=== PATIENT | female | born 1940 | race Caucasian/White ===

== ENCOUNTER 2020-08-18 13:37 | Outpatient (CLI) | payer OTHER, SELFPAY ==
--- NOTE | ~2020-08-18 | US_ITS ---
EXAMINATION: US carotid duplex BI DATE: 08/18/2020 14:35 INDICATION: Dizziness. TECHNIQUE: Grayscale, color Doppler, and pulsed Doppler images of the cervical carotid arteries were obtained. The degree of vessel stenosis is placed in one of the following categories: normal, <50%, 5 0-69%, >=70% but less than near-occlusion, near-occlusion, or total occlusion. Note that percent sten osis relative to normal distal artery lumen diameter is indirectly measured from velocity measurement s as described by Enoch, et al. Radiology 2003; [id number]:[id number]. COMPARISON: None. FINDINGS: RIGHT: The right common carotid artery (CCA) peak systolic velocity (PSV) is 90 cm/s. The right internal car otid artery (ICA) PSV is 95 cm/s. The right ICA end-diastolic velocity (EDV) is 25 cm/s. The right IC A/CCA PSV ratio is 1.1. Grayscale and color Doppler images yield an estimate of <50% diameter reducti on from plaque in the ICA. There is antegrade flow in the right vertebral artery. LEFT: The left CCA PSV is 94 cm/s. The left ICA PSV is 129 cm/s. The left ICA EDV is 39 cm/s. The left ICA/ CCA PSV ratio is 1.4. Grayscale and color Doppler images yield an estimate of >=50% diameter reductio n from plaque in the ICA. There is antegrade flow in the left vertebral artery. IMPRESSION: 1. <50% stenosis in the right internal carotid artery. 2. 50-69% stenosis in the left internal carotid artery. Reviewed, dictated and finalized at location A. 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
== END 2020-08-18 13:38 | disposition home or self-care (01) ==
PROVIDERS: PCP Internal Medicine; Visit Provider Internal Medicine
DX: R42 Dizziness and giddiness (principal); I65.23 Occlusion and stenosis of bilateral carotid arteries
CPT/HCPCS: 93880

== ENCOUNTER 2020-11-28 08:00 | Outpatient (RCR) | payer OTHER, SELFPAY ==
--- NOTE | 2020-11-03 16:15 | PTOPEVAL ---
PHYSICAL THERAPY EVALUATION AND PLAN OF CARE 11-03-20 Thank you for referring Pepper Wilde to [facility], for the diagnosis of vertigo, BPPV, vestibular rehab.? Pepper is scheduled to be seen for therapy? 1-2 x/week for 5 weeks. Please review, sign, date and return this plan of care VALENTINA. I agree with and certify that the following plan of care is medically necessary. Referring Physician Date Referring Provider: Pablito Mayen MD *PT Outpatient Evaluation Document 11/03/20 15:10 YASHIRA (Rec: 11/03/20 16:15 YASHIRA [id number]) Outpatient Past Medical History Past Medical History Source of Past Medical History Patient Neurological History Hx Neurological Disorders No Significant History Cardiovascular History Hx Cardiac Surgery Yes: cardiac stents ~ 8 yr ago Hx Hypertension Yes: meds Respiratory History Hx Respiratory Disorders No Significant History Gastrointestinal History Hx Gastroesophageal Reflux Disease Yes: meds Hx Irritable Bowel Yes: stress related Genitourinary History Hx Genitourinary Disorders No Significant History Musculoskeletal History Hx Arthritis Yes: hips and hands Hx Degenerative Disk Disease Yes: neck pain Endocrine History Hx Diabetes Yes: borderline- diet control HEENT History Hx Cataracts Yes: B cataract removed Hx Other HEENT Disorders Yes: have astigmatism;last to eye dr 1 month ago Integumentary History Hx Skin Disorders No Significant History Reproductive History Hx Reproductive Disorders No Significant History Evaluation Information Problem Diagnosis benign positional vertigo Onset Jul 2020 Prior Level of Function Activity Level (Last 3 Months) 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 Home PRN for pain; Meds Must Be Re-entered With Each Visit. Home Setting Home Type House Living Situation A
--- NOTE | 2020-11-08 14:26 | PCPTNOTE ---
Patient called & cancelled scheduled appointment this date due to having water in the basement.
--- NOTE | 2021-01-03 15:15 | PCPTNOTE ---
PHYSICAL THERAPY DISCHARGE 01-03-21 Attending Provider: Pablito Mayen MD Patient:Pepper Wilde Date of :1940 Mrs. Wilde has not returned for any further treatments since 11/28/2020, therefore she will be discharged at this time. She received 3 treatments for the diagnosis of BPPV/vestibular rehab from November 03 to November 28. She called and canceled one appointment. The goals were not addressed. Thank you for referring Pepper to [facility]. Please review, sign, date and return this discharge summary VALENTINA. I have been updated about the patient's current status and I agree with discharge from the above service at this time. Referring Physician Date
== END 2021-01-05 08:17 | disposition home or self-care (01) ==
LOC: ANHPT 08:00
PROVIDERS: PCP Internal Medicine; Referring Provider Otolaryngology; Visit Provider Otolaryngology
DX: H81.13 Benign paroxysmal vertigo, bilateral (principal)
CPT/HCPCS: 97110; 97161

== ENCOUNTER 2021-04-03 09:29 | Outpatient (CLI) | payer OTHER, SELFPAY ==
[2021-04-03 10:27] LABS: Alanine Aminotransferase 30 U/L (4-35); Aspartate Amino Transferase 54 U/L (14-36)
[2021-04-03 10:38] LABS: LDL Cholesterol Direct 107 mg/dL
[2021-04-03 11:22] LABS: Hepatitis C Virus Antibody Negative (Negative)
== END 2021-04-03 09:30 | disposition home or self-care (01) ==
PROVIDERS: PCP Internal Medicine; Visit Provider Internal Medicine
DX: R74.8 Abnormal levels of other serum enzymes (principal)
CPT/HCPCS: 36415; 83721; 84450; 84460; 86803

== ENCOUNTER 2021-10-23 09:33 | Outpatient (CLI) | payer OTHER, SELFPAY ==
--- NOTE | ~2021-10-23 | XR_ITS ---
EXAMINATION: XR shoulder LT min 2V DATE: 10/23/2021 09:48 INDICATION: Chronic left shoulder pain. TECHNIQUE: 4 views of left shoulder were obtained. COMPARISON: Left shoulder radiographs 09/19/2016 FINDINGS: Bone alignment is normal. No fracture. There is mild osteoarthritis of glenohumeral joint a nd moderate osteoarthritis of acromioclavicular joint. IMPRESSION: 1. Polyarticular osteoarthritis. Reviewed, dictated and finalized at location A.
[2021-10-23 10:09] LABS: Basophils Absolute Auto 0.1 K/mm3 (0.0-0.1); Basophils Percent Auto 0.7 % (0.2-1.2); Eosinophils Absolute Auto 0.1 K/mm3 (0-0.3); Eosinophils Percent Auto 1.5 % (0-4.4); Hematocrit 40.9 % (37.0-47.0); Hemoglobin 13.6 g/dL (12.0-15.0); Immature Granulocyte Absolute 0.02 K/mm3 (0.00-0.031); Immature Granulocyte Percent A 0.2 % (0-0.5); Lymphocytes Percent Auto 19.7 % (18.3-44.2); Mean Corpuscular HGB Conc 33.3 g/dl (32-36); Mean Corpuscular Hemoglobin 30.6 pg (26-34); Mean Corpuscular Volume 91.9 fl (80-100); Mean Platelet Volume 9.2 fl (7.4-10.4); Monocytes Absolute Auto 0.6 K/mm3 (0.1-0.6); Monocytes Percent Auto 7.3 % (2.6-8.5); Neutrophils Absolute Auto 6.1 K/mm3 (1.3-6.7); Neutrophils Percent Auto 70.6 % (45.5-73.1); Platelet Count Result 242 k/mm3 (150-375); Red Blood Count 4.45 M/mm3 (4.2-5.4); Red Cell Distribution Width 12.6 % (11.5-14.5); White Blood Count 8.7 K/mm3 (4.5-10.0)
[2021-10-23 10:22] LABS: Alanine Aminotransferase 22 U/L (4-35); Albumin Level 4.3 g/dL (3.5-5.1); Alkaline Phosphatase 88 U/L (38-126); Anion Gap 7 mmol/L (8-16); Aspartate Amino Transferase 31 U/L (14-36); Bilirubin,Total 1.5 mg/dL (0.2-1.3); Blood Urea Nitrogen 15 mg/dL (7-17); Calcium 8.9 mg/dL (8.4-10.2); Carbon Dioxide 24 mmol/L (22-30); Chloride 108 mmol/L (98-107); Cholesterol 213 mg/dL (0-200); Estimated Glomerular Filt Rate > 60; Glucose 114 mg/dL (65-110); HDL Direct 54 mg/dL; Potassium 3.9 mmol/L (3.4-5.0); Sodium 139 mmol/L (137-145); Triglycerides 138 mg/dL (<150)
[2021-10-23 10:27] LABS: Hemoglobin A1C 5.8 % (<5.7)
[2021-10-23 10:33] LABS: LDL Cholesterol Direct 105 mg/dL
== END 2021-10-23 09:34 | disposition home or self-care (01) ==
PROVIDERS: PCP Internal Medicine; Visit Provider Family Medicine
DX: M19.012 Primary osteoarthritis, left shoulder (principal)
CPT/HCPCS: 36415; 73030; 80053; 80061; 83036; 85025

== ENCOUNTER 2022-01-23 16:00 | Outpatient (CLI) | payer OTHER, SELFPAY ==
--- NOTE | ~2022-01-23 | XR_ITS ---
XR ankle RT min 3V 01/23/2022 16:23 Indication: Acute right ankle pain Procedure: 4 views right ankle Comparison: 12/01/2017 Findings: Ankle mortise intact. Talar dome is normal. There is mild lateral soft tissue swelling. Mil d degenerative changes of the talonavicular joint. No fracture or traumatic malalignment. No foreign bodies. Impression: 1: No acute bone or joint abnormality. Reviewed, dictated and finalized at location A. Impression: 1: No acute bone or joint abnormality.
== END 2022-01-23 16:01 | disposition home or self-care (01) ==
PROVIDERS: PCP Internal Medicine; Visit Provider Family Medicine
DX: M25.471 Effusion, right ankle (principal); M79.89 Other specified soft tissue disorders; M19.071 Primary osteoarthritis, right ankle and foot
CPT/HCPCS: 73610

== ENCOUNTER 2022-03-15 13:46 | Outpatient (CLI) | payer OTHER, SELFPAY ==
--- NOTE | ~2022-03-15 | XR_ITS ---
XR shoulder LT min 2V DATE: 03/15/2022 14:08 INDICATION: Chronic left shoulder pain TECHNIQUE: 4 views COMPARISON: 10/23/2021 left shoulder FINDINGS: No fracture or dislocation, periosteal reaction or bone destruction. No abnormal soft tiss ue calcification. IMPRESSION: Negative Reviewed, dictated and finalized at location B. IMPRESSION: Negative
== END 2022-03-15 13:47 | disposition home or self-care (01) ==
PROVIDERS: PCP Family Medicine; Visit Provider Family Medicine
DX: M25.512 Pain in left shoulder (principal); G89.29 Other chronic pain
CPT/HCPCS: 73030

== ENCOUNTER 2022-05-13 13:03 | Inpatient (IN) | payer OTHER, SELFPAY ==
--- NOTE | ~2022-05-13 | XR_ITS ---
EXAM: XR pelvis 1-2V DATE: 05/13/2022 17:17 HISTORY: fall TODAY, PAIN WITH MOVEMENT, LOWER BACK PAIN . COMPARISON: 07/25/2012. FINDINGS: Exam limited by exclusion of a portion of the right greater trochanter from the field-of-v iew. Decreased mineralization. No fracture or dislocation. No lytic or blastic lesion. Degenerative c hanges in the lumbar spine, left SI joint, and bilateral hips. Scattered pelvic enthesopathy. No eros ion or periosteal change. Vascular calcifications. IMPRESSION: Limited exam as detailed above. No definite acute osseous finding in the pelvis. Reviewed, dictated and finalized at location K. IMPRESSION: Limited exam as detailed above. No definite acute osseous finding i n the pelvis.
--- NOTE | ~2022-05-13 | US_ITS ---
EXAMINATION: US right upper quadrant DATE: 05/15/2022 07:28 INDICATION: Abnormal liver function tests. TECHNIQUE: Multiple grayscale and Doppler ultrasound images of the abdomen were obtained. COMPARISON: CT abdomen and pelvis 08/17/2008 FINDINGS: The visualized portions of the head, body, and tail of the pancreas are normal. There is di ffuse hepatic steatosis. No liver surface nodularity. The gallbladder is absent. The common duct is n ormal and measures 7 mm. IMPRESSION: 1. Diffuse hepatic steatosis. Reviewed, dictated and finalized at location A.
--- NOTE | ~2022-05-13 | CT_ITS ---
EXAMINATION: CT brain wo con DATE: 05/13/2022 13:45 INDICATION: Head injury. TECHNIQUE: Computed tomography (CT) of the head was performed without intravenous contrast. The mA wa s adjusted according to patient size. Iterative reconstruction technique was employed. The dose-lengt h product was 605.33 mGy-cm. COMPARISON: Head CT 09/04/2012 FINDINGS: There are scattered areas of low attenuation in the cerebral white matter, which is within normal limits for the patient's age. There is a small area of cystic encephalomalacia in the deep rig ht frontoparietal white matter. There is no intracranial hemorrhage, acute infarction, or abnormal in tracranial mass lesion. The ventricles are normal in size. There are likely changes of ocular lens re placement surgeries. There is a right posterior scalp hematoma. There is mild mucosal thickening in t he paranasal sinuses. The mastoid air cells are normal. IMPRESSION: 1. Small area of chronic cystic encephalomalacia in the deep right frontoparietal white matter. Reviewed, dictated and finalized at location A. IMPRESSION: 1. Small area of chronic cystic encephalomalacia in the deep right frontopariet al white matter.
--- NOTE | ~2022-05-13 | CT_ITS ---
EXAMINATION: CT pelvis wo con DATE: 05/14/2022 13:30 INDICATION: Left buttock pain. Fall. TECHNIQUE: Computed tomography (CT) of the pelvis was performed without intravenous contrast. Automat ed exposure control and iterative reconstruction technique were employed. The dose-length product was 272.68 mGy-cm. COMPARISON: CT abdomen and pelvis 08/17/2008 FINDINGS: There is an infraumbilical ventral hernia containing fat. The bladder is distended. There i s a 5.1 x 5.3 cm mass in the right adnexa. There are no pathologically enlarged lymph nodes. There is no free intraperitoneal fluid. There are chronic bilateral L5 pars defects. There is 11 mm anterolis thesis of L5 on S1. There is severe lumbar spondylosis. There is moderate osteoarthritis of the hips. IMPRESSION: 1. 5.3 cm mass in the right adnexa suspicious for neoplasm. Pelvis ultrasound is recommended. Reviewed, dictated and finalized at location A. IMPRESSION: 1. 5.3 cm mass in the right adnexa suspicious for neoplasm. Pelvis ultrasound i s recommended.
--- NOTE | ~2022-05-13 | MR_ITS ---
EXAMINATION: MR brain/brain stem wo/w con DATE: 05/14/2022 13:03 INDICATION: Vertigo. TECHNIQUE: Magnetic resonance imaging (MRI) of the brain and brainstem was performed without and with 13 mL MultiHance intravenous contrast. COMPARISON: Head CT 05/13/2022 FINDINGS: There are scattered areas of nonspecific increased T2-weighted signal intensity in the cere bral white matter, which is within normal limits for the patient's age. 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 There is a small old infar ct in left frontal lobe. There is no intracranial hemorrhage, acute infarction, or abnormal intracran ial mass lesion. The ventricles are normal in size. There is mild mucosal thickening in the ethmoid s inuses. There are likely changes of ocular lens replacement surgeries. The mastoid air cells are norm al. IMPRESSION: 1. 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 Reviewed, dictated and finalized at location A.
--- NOTE | ~2022-05-13 | US_ITS ---
EXAMINATION: US carotid duplex BI DATE: 05/14/2022 10:55 INDICATION: Carotid bruit. TECHNIQUE: Grayscale, color Doppler, and pulsed Doppler images of the cervical carotid arteries were obtained. The degree of vessel stenosis is placed in one of the following categories: normal, <50%, 5 0-69%, >=70% but less than near-occlusion, near-occlusion, or total occlusion. Note that percent sten osis relative to normal distal artery lumen diameter is indirectly measured from velocity measurement s as described by Enoch, et al. Radiology 2003; [id number]. COMPARISON: Ultrasound 08/18/2020 FINDINGS: RIGHT: The right common carotid artery (CCA) peak systolic velocity (PSV) is 84 cm/s. The right internal car otid artery (ICA) PSV is 109 cm/s. The right ICA end-diastolic velocity (EDV) is 22 cm/s. The right I CA/CCA PSV ratio is 1.3. Grayscale and color Doppler images yield an estimate of <50% diameter reduct ion from plaque in the ICA. There is antegrade flow in the right vertebral artery. LEFT: The left CCA PSV is 99 cm/s. The left ICA PSV is 150 cm/s. The left ICA EDV is 29 cm/s. The left ICA/ CCA PSV ratio is 1.8. Grayscale and color Doppler images yield an estimate of >=50% diameter reductio n from plaque in the ICA. There is antegrade flow in the left vertebral artery. IMPRESSION: 1. <50% stenosis in the right internal carotid artery. 2. 50-69% stenosis in the left internal carotid artery. Reviewed, dictated and finalized at location A.
--- NOTE | ~2022-05-13 | CT_ITS ---
EXAMINATION: CT brain wo con DATE: 05/16/2022 09:04 INDICATION: Confusion TECHNIQUE: Computed tomography (CT) of the head was performed without intravenous contrast. The mA wa s adjusted according to patient size. Iterative reconstruction technique was employed. Exam dose: 60 5.33 mGy-cm total exam DLP. COMPARISON: 05/14/2022 MR brain 05/13/2022 CT brain 09/04/2012 CT brain FINDINGS: There is right vertebral, basilar and bilateral carotid siphon internal carotid artery calc ification. Small focal chronic infarct in the right frontoparietal white matter. No intracranial mass lesion or hemorrhage or cerebrovascular accident is noted otherwise. Prominent right high posterior parietal cephalohematoma, without underlying skull fracture or intracr anial coup or contrecoup injury. No subdural or epidural hematoma. No cerebral contusion is detected. The cranial vault is intact. The mastoid air cells and included paranasal sinuses are normally develo ped and aerated. IMPRESSION: High right posterior parietal cephalohematoma; no skull fracture or acute intracranial f inding Chronic small focal white matter infarct, right frontoparietal area Cerebral atherosclerosis No acute intracranial finding Reviewed, dictated and finalized at Location A. Reviewed, dictated and finalized at location A. IMPRESSION: High right posterior parietal cephalohematoma; no skull fracture o r acute intracranial finding Chronic small focal white matter infarct, right frontoparietal area Cerebral atherosclerosis No acute intracranial finding
--- NOTE | ~2022-05-13 | US_ITS ---
EXAMINATION: US pelvic complete DATE: 05/15/2022 14:22 INDICATION: Adnexal mass. TECHNIQUE: Multiple transabdominal sonographic images of the pelvis were obtained. COMPARISON: Pelvis CT 05/14/2022 FINDINGS: The uterus is absent. There is no free fluid in the pelvis. There is a 6.8 x 4.4 x 5.5 cm cystic mass with septations and low level echoes in right adnexa. There is vascular flow in the mass. Left ovary is not visualized. IMPRESSION: 1. 6.8 cm cystic mass in right adnexa suspicious for neoplasm. Consider surgical evaluation. Reviewed, dictated and finalized at location A. IMPRESSION: 1. 6.8 cm cystic mass in right adnexa suspicious for neoplasm. Consider surgica l evaluation.
[2022-05-13 13:07] VITALS: BP 190/82; PULSE 95; RESP 18; TEMP 37; O2SAT 98
[2022-05-13] MEDS: MECLIZINE HCL 25 MG TABLET PO ×2 (13:27→17:25)
--- NOTE | 2022-05-13 13:44 | ED.FALL ---
HPI - Fall General Chief Complaint: Fall Stated Complaint: mechanical GLF History of Present Illness HPI Narrative: Pt says she sometimes has vertigo when she changes position quickly. Today she was in parking lot and felt dizzy and lost her balance and fell on the concrete striking her head. Pt denies LOC or neck pain. Pt denies any other injury. Related Data Home Medications Medication Instructions Recorded Confirmed acetaminophen 500 mg tablet 500 mg PO Q6H PRN 06/12/20 (Tylenol Extra Strength) amlodipine 5 mg tablet 5 mg PO DAILY 06/12/20 atorvastatin 80 mg tablet 80 mg PO DAILY 06/12/20 benzonatate 100 mg capsule 100 mg PO BID PRN 06/12/20 carboxymethylcellulose 0.5 1 drp ophthalmic (eye) QID 06/12/20 %-glycerin 0.9 % eye drops (Refresh Optive) fexofenadine 180 mg tablet 180 mg PO DAILY 06/12/20 (Jerri Allergy) lisinopril 5 mg tablet 5 mg PO DAILY 06/12/20 loperamide 2 mg capsule 2 mg PO Q6H PRN 06/12/20 (Anti-Diarrheal (loperamide)) Allergies Allergy/AdvReac Type Severity Reaction Status Date / Time carisoprodol AdvReac Mild DIZZY Verified 05/13/22 13:26 pentazocine AdvReac Mild DIZZY Verified 05/13/22 13:26 propoxyphene AdvReac Mild DIZZY Verified 05/13/22 13:26 Review of Systems Review of Systems: All systems reviewed & are unremarkable except as noted in HPI and below PMFSH Family History Family History (Updated 02/09/16 @ 23:21 by DOCTOR UNKNOWN) Mother Family history of malignant neoplasm Family history of lung cancer Sibling Patient's brother is in good health Father Family history of malignant neoplasm Other Diabetes mellitus Family history of diabetes mellitus in first degree relative Family history of malignant neoplasm of breast Family history of malignant neoplasm of breast in first degree relative Social History Social History Smoking status: Never smoker Alcohol intake: never Exam Const: General: healthy appearing Nutritional Appearance: well nourished Orientation/consciousness: patient oriented x3 Limitations: no limitations HENMT: Head: hematoma (occiput) Eyes: Conjunctivae: conjunctivae normal EOM: EOMs intact bilaterally Neck: Neck: normal visual inspection, no lymphadenopathy and no meningeal signs Chest: Chest palpation & inspection: normal inspection of the chest Resp: Effort & Inspection: normal respiratory effort Auscultation: clear to auscultation bilaterally Cardio: Rate: regular rate Rhythm: regular rhythm GI: Auscultation: normal bowel sounds Skin: General skin exam: normal color Rashes: no rashes Wounds: no wounds Neuro: General: patient oriented x3, moves all extremities, no meningeal signs, no focal motor deficits and CN's II-XI intact bilaterally Cranial nerves: Yes Nystagmus not present Speech: normal speech Extrem: General: normal to inspection and no clubbing, cyanosis or edema Psych: Mental Status: mental status grossly normal Affect: normal affect Attitude: cooperative Course Course Emergency Course: attempted to walk patient after medicating two times and patient unable to walk more than a couple of steps without becoming extremely dizzy and unsteady and nearly falling with me holding onto her. Pt agrees to overnight admission. discussed with isiah Hammer agrees with admit. Vital Signs Vital signs: Vital Signs Temperature 98.6 F 05/13/22 13:07 Pulse Rate 95 05/13/22 13:07 Respiratory Rate 18 05/13/22 13:07 Blood Pressure 190/82 H 05/13/22 13:07 Pulse Oximetry 98 05/13/22 13:07 Oxygen Delivery Room Air 05/13/22 13:07 Temperature 98.6 F 05/13/22 13:07 Pulse Rate 95 05/13/22 13:07 Respiratory Rate 18 05/13/22 13:07 Blood Pressure 190/82 H 05/13/22 13:07 Pulse Oximetry 98 05/13/22 13:07 Oxygen Delivery Room Air 05/13/22 13:07 Discharge Plan Discharge Clinical Impression: Benign positional vertigo, Contusion Patient Disposition: Still
[2022-05-13] MEDS: ONDANSETRON HCL ODT 4 MG TABLET PO (15:56)
--- NOTE | 2022-05-13 17:48 | PM.IMHP ---
H&P: HPI History of Present Illness Date/Time: 05/13/22 18:00 Chief Complaint: Fall. Narrative: This is a very pleasant 81-year-old female with history of vertigo, coronary artery disease with history of stent, hypertension, GERD, and borderline diabetes who presented to the ED via EMS from the parking lot of a local establishment for evaluation after a fall. She felt okay when she got up this morning and went to the [employer] store to go shopping. When she was stepping up occurred to enter the store she lost her balance and fell straight back onto the pavement, striking the back of her head. She did not lose consciousness and she luckily did not sustain any significant injuries aside from a large posterior scalp hematoma. She does however mention some mild pain over her tailbone. Passersby tried to help her up however at that time she was feeling quite dizzy, more vertiginous, and EMS was summoned. Vertigo is not new to her and she has prescriptions for meclizine at home. She has even done physical therapy which seemed to help though she has had increasing issues with vertigo more recently. Brain CT done on arrival to the emergency department did not show any acute findings. Her vital signs have been stable. She was treated with meclizine and Zofran though she continues to have symptoms and she is being admitted in this setting for supportive care. It does not sound as though she had a prodrome prior to this episode however she tells me that she assumes that she had vertigo which cause the fall. She specifically denies feeling lightheaded, dizzy, woozy, etcetera prior to the fall. She also denies acute auditory and visual changes, focal weakness, paresthesias, facial droop, dysarthria, and dysphagia. It is not unusual for her to have sinus issues and earaches and that is unchanged. She has not had chest pain, pleuritic pain, palpitations, or shortness of breath. Of note the patient had a fall last week at home and sustained a contusion to the right side of the nose. Review of Systems Review of Systems: Twelve systems were reviewed and are negative except for as per HPI. [facility] Past Medical History Medical History (Updated 05/13/22 @ 23:06 by Kandace Pang PA-C) Coronary artery disease Degenerative disc disease Hyperlipidemia Hypertension Vertigo Surgical History Surgical History (Updated 05/13/22 @ 22:43 by Kandace Pang PA-C) History of bilateral cataract extraction History of cardiac catheterization History of heart artery stent Family History Family History Mother Family history of malignant neoplasm Family history of lung cancer Sibling Patient's brother is in good health Father Family history of malignant neoplasm Other Diabetes mellitus Family history of diabetes mellitus in first degree relative Family history of malignant neoplasm of breast Family history of malignant neoplasm of breast in first degree relative Social History Social History (Updated 05/13/22 @ 22:45 by Kandace Pang PA-C) Social History: Surrogate medical decision maker: Liliya Xiao or Nahun Hoffman, darshan. Code status: full code. Smoking status: Never smoker Alcohol intake: never Has the Lack of Transportation Kept You From Medical Appointments or From Getting Medications?: No Within the Past 12 Months, Were You Worried Whether Your Food Would Run Out Before You Got Money to Buy More?: Never True What is Your Housing Situation Today?: I Have Housing Are You Worried That in the Next 2 Months, You May Not Have Your Own Housing to Live In?: No Do You Have Trouble Paying Your Heating Or Electricity Bill?: No Do You Have Trouble Paying For Medicines?: No Are You Currently Unemployed and Looking for Work?: No Highest Level of Education Completed: High School Diploma/GED Do You Have Trouble With Childcare or the Care of a Family Member?: No
[2022-05-13 18:39] LABS: SARS-CoV-2 RNA PCR Negative
--- NOTE | 2022-05-13 20:36 | ADMGEN ---
This patient, Pepper Wilde, was admitted to 3 Med Surg Room 332-02. Patient/family oriented to hospital policies and general routines including ID bracelet, bed and alarms, visiting hours, pain management, procedures, bathroom and other care routines, personal items, smoking policy, room service/diet, and visiting hours. Information on how to activate the Rapid Response Team has been discussed. Patient/Family are encouraged to report perceived risks to care and to ask questions if they do not understand what they are told or what they should do.
[2022-05-13 22:00] VITALS: BP 138/59; PULSE 81; RESP 16; TEMP 35.9; O2SAT 97
[2022-05-13] MEDS: diazePAM (*CRX) 2.5 MG TABLET PO (23:50)
[2022-05-14] VITALS (10 sets, daily range): BP systolic 134–162; BP diastolic 61–87; PULSE 67–93; RESP 16–18; TEMP 35.9–36.6; O2SAT 90–94
[2022-05-14 06:23] LABS: Hematocrit 38.8 % (37.0-47.0); Hemoglobin 13.2 g/dL (12.0-15.0); Mean Corpuscular Hemoglobin 29.7 pg (26-34); Mean Corpuscular Volume 87.4 fl (80-100); Mean Platelet Volume 8.9 fl (7.4-10.4); Platelet Count Result 250 k/mm3 (150-375); Red Blood Count 4.44 M/mm3 (4.2-5.4); Red Cell Distribution Width 13.2 % (11.5-14.5); White Blood Count 13.4 K/mm3 (4.5-10.0)
[2022-05-14 06:35] LABS: Alanine Aminotransferase 108 U/L (6-35); Alkaline Phosphatase 132 U/L (38-126); Anion Gap 8 mmol/L (8-16); Aspartate Amino Transferase 38 U/L (14-36); Bilirubin,Total 2.2 mg/dL (0.2-1.3); Blood Urea Nitrogen 13 mg/dL (7-17); Calcium 8.7 mg/dL (8.4-10.2); Carbon Dioxide 22 mmol/L (22-30); Chloride 96 mmol/L (98-107); Estimated CRCL calculation 40 ml/min; Estimated Glomerular Filt Rate > 60; Glucose 120 mg/dL (65-110); Magnesium 2.1 mg/dL (1.6-2.3); Potassium 4.6 mmol/L (3.4-5.0); Sodium 126 mmol/L (137-145)
[2022-05-14] MEDS: ONDANSETRON INJ 4 MG/2 ML VIAL IV PUSH (08:55)
[2022-05-14] MEDS: ARTIFICIAL TEARS OPHTH SOLN 15 ML BOTTLE 1 DROP EACH EYE ×4 (11:02→22:02)
[2022-05-14] MEDS: MECLIZINE HCL 25 MG TABLET PO ×3 (11:02→16:52)
[2022-05-14] MEDS: ACETAMINOPHEN 500 MG TABLET PO (11:03)
[2022-05-14] MEDS: LORATADINE 10 MG TABLET PO (11:04)
[2022-05-14] MEDS: amLODIPine BESYLATE 5 MG TABLET PO (11:04)
[2022-05-14] MEDS: ASPIRIN 81 MG CHEWABLE TABLET PO (11:04)
[2022-05-14] MEDS: lisinopriL 5 MG TABLET PO (11:04)
[2022-05-14] MEDS: BENZONATATE 100 MG CAPSULE PO ×2 (11:04→22:03)
[2022-05-14] MEDS: ATORVASTATIN 40 MG TABLET PO (11:04)
[2022-05-14] MEDS: VITAMIN B COMPLEX CAPSULE 1 CAP PO (11:05)
--- NOTE | 2022-05-14 11:18 | PM.IMPN ---
Progress Note: A&P Assessment and Plan (1) Vertigo: Code(s): R42 - Dizziness and giddiness Status: Acute (2) Fall from ground level: Code(s): W18.30XA - Fall on same level, unspecified, initial encounter Status: Acute (3) Scalp hematoma: Code(s): S00.03XA - Contusion of scalp, initial encounter Status: Acute (4) Bruit: Code(s): R09.89 - Other specified symptoms and signs involving the circulatory and respiratory systems Status: Acute (5) Hyponatremia: Code(s): E87.1 - Hypo-osmolality and hyponatremia Status: Acute (6) Elevated LFTs: Code(s): R79.89 - Other specified abnormal findings of blood chemistry Status: Acute (7) Hypertension: Code(s): I10 - Essential (primary) hypertension Status: Acute (8) Hyperlipidemia: Code(s): E78.5 - Hyperlipidemia, unspecified Status: Acute Plan Patient has acute on chronic vertigo. He presents due to fall. CT of the brain shows small area of chronic cystic encephalomalacia in the deep right frontoparietal white matter. She is on aspirin and Lipitor. He is were continued. Carotid Doppler does show 50-69% stenosis in left internal carotid artery. We will proceed with checking B12, TSH Conti. Will check MRI of the brain to exclude cerebellar infarct. Start PT and OT. CT of the pelvis to exclude occult pelvic or femur fracture. Echo has been ordered. Schedule meclizine. Check hepatitis panel. Check right upper quadrant ultrasound. Will hold atorvastatin. repeat LFTs in the morning. Sodium is low. Consider dehydration although her renal function is normal. Consider SIADH from her dizziness. She may also had an acute subclinical CVA. Will check urine studies. Check UA with micro and culture. Further recommendation as course dictates. Continue telemetry today. Subjective Date/time seen: 05/14/22 11:18 Interval history: 81yo female with HTN and chronic vertigo here for dizziness and falls. Patient complains that her tailbone hurts. She has been having vertigo for years. Symptoms are worse at night. Physician had her on meclizine at night. Few weeks ago, the physician increased her meclizine to 3 times a day. She describes the room spinning specially when she is lying flat in bed. Symptoms are better will if she has elevated head of the bed. She is falling recently. She fell a week ago causing head trauma. She did not seek care at that time. Exam Narrative: AF 96.7 150/70 72 16 94% ra Gen - NARD HEENT - right occipital -parietal scalp ecchymoses. small dried eschar noted right naris. Chest - Few basilar inspiratory crackles otherwise clear. CV - RRR S1/S2. Telemetry showing no significant dysrhythmias. Abd - Soft, NT/ND, Positive BS Ext - No pedal edema. Left buttock pain when doing left hip range of motion. Neuro - Alert and oriented. Nonfocal exam. Psych - Nml mood and affect Skin - Warm and dry Objective Data Vital Signs Vital Signs: Vital Signs - 24 hr 05/13/22 13:07 05/13/22 22:00 05/14/22 05:29 Temperature 98.6 F 96.6 F L 96.7 F L Pulse Rate 95 81 72 Respiratory Rate 18 16 16 Blood Pressure 190/82 H 138/59 L 150/70 H Pulse Oximetry 98 97 94 Oxygen Delivery Room Air 05/14/22 00:00 Temperature Pulse Rate 77 Respiratory Rate Blood Pressure Pulse Oximetry Oxygen Delivery Intake/Output Intake/Output: Intake & Output 05/11/22 05/12/22 05/13/22 05/14/22 23:59 23:59 23:59 23:59 Intake Total 100 Output Total 200 Balance -100 Meds/Results Medications: Active Medications Generic Name Dose Route Start Last Admin Trade Name Freq PRN Reason Stop Dose Admin Acetaminophen 650 mg 05/13/22 23:02 Acetaminophen 325 Mg Tablet PO Q6H PRN Mild Pain (1-3) or Fever Acetaminophen 500 mg 05/14/22 09:00 05/14/22 11:03 Acetaminophen 500 Mg Tablet PO 500 mg DAILY [facility] [place] Administrati
[2022-05-14 13:18] LABS: Hepatitis B Surface Antigen Negative (Negative)
[2022-05-14 13:23] LABS: HAV RESULT Negative (Negative); Hepatitis B Core IgM Result Negative (Negative)
[2022-05-14 13:35] LABS: Hepatitis C Virus Antibody Negative (Negative)
[2022-05-14 14:03] LABS: Folic Acid 10.9 ng/mL (2.76->20); Vitamin B12 > 1000.0 pg/mL (239-931)
[2022-05-14] MEDS: ACETAMINOPHEN 325 MG TABLET 650 MG PO (16:50)
--- NOTE | 2022-05-14 23:03 | ECHO_ITS ---
Patient Info Name: Pepper Wilde Age: 81 years : 1940 Gender: Female Ht: 61 in Wt: 143 lbs BSA: 1.69 m2 HR: 72 bpm BP: 150 / 70 mmHg Heart Rhythm: Sinus Rhythm Technical Quality: Fair Exam Date: 05/14/2022 9:07 AM Exam Location: [facility] Card Pulmonary Patient Status: Inpatient Admit Date: 05/13/2022 Staff Ordering Physician: Kandace Pang PA-C Technical Intern: Keisha Fox RDCS Attending Provider: Ladarius Sin MD Referring Physician: Poly SCHROEDER; Exam Type: CA echo doppler color flow Study Info Indications - HTN, DIZZY, MURMUR, CAD Complete two-dimensional, color flow and Doppler transthoracic echocardiogram is performed. Summary 1. Technically difficult study. 2. Left ventricular systolic function is normal, estimated at >70%. 3. The left ventricular diastolic function is grade I diastolic dysfunction. 4. Right ventricular systolic function is normal. 5. No significant valvular disease. Left Ventricle Left ventricular chamber dimension is normal. Left ventricular systolic function is normal, estimated at >70%. There is no increased left ventricular wall thickness. The left ventricular diastolic function is grade I diastolic dysfunction. Right Ventricle Right ventricular chamber dimension is normal. Right ventricular systolic function is normal. Left Atria Left atrial chamber dimension is normal. Right Atria Right atrial chamber dimension is normal. Atrial Septum Intact interatrial septum visualized by color flow imaging. Aortic Valve The aortic valve is not well visualized. There is no aortic valve stenosis. There is no aortic valve regurgitation. There is mild aortic valve calcification. Pulmonic Valve The pulmonic valve is not well visualized. Mitral Valve The mitral valve has normal leaflets. There is no mitral valve stenosis. There is no mitral valve regurgitation. Tricuspid Valve The tricuspid valve leaflets are not well visualized. There is trace tricuspid valve regurgitation. Aorta The aortic root size at the sinus of Valsalva is normal. Left Ventricular Outflow Tract Name Value Normal LVOT 2D LVOT Diameter 2.0 cm LVOT Doppler LVOT Peak Gradient 6 mmHg LVOT Mean Gradient 3 mmHg LVOT VTI 18 cm LVOT VTI/AV VTI Ratio 0.6 LVOT Stroke Volume 57 ml LVOT CO 4.7 l/min LVOT CI 2.8 l/min/m2 Pulmonic Valve Name Value Normal RVOT Doppler RVOT Peak Gradient 6 mmHg PV Doppler PV Peak Gradient 7 mmHg Mitral Valve
[2022-05-15] VITALS (12 sets, daily range): BP systolic 102–169; BP diastolic 54–82; PULSE 56–129; RESP 16–22; TEMP 36.3–37.1; O2SAT 94–97
[2022-05-15 07:36] LABS: Hematocrit 39.4 % (37.0-47.0); Hemoglobin 13.6 g/dL (12.0-15.0); Mean Corpuscular HGB Conc 34.5 g/dl (32-36); Mean Corpuscular Hemoglobin 30.3 pg (26-34); Mean Corpuscular Volume 87.8 fl (80-100); Mean Platelet Volume 9.2 fl (7.4-10.4); Platelet Count Result 240 k/mm3 (150-375); Red Blood Count 4.49 M/mm3 (4.2-5.4); Red Cell Distribution Width 13.4 % (11.5-14.5); White Blood Count 16.7 K/mm3 (4.5-10.0)
[2022-05-15 07:45] LABS: Alanine Aminotransferase 78 U/L (6-35); Alkaline Phosphatase 107 U/L (38-126); Anion Gap 12 mmol/L (8-16); Aspartate Amino Transferase 47 U/L (14-36); Blood Urea Nitrogen 13 mg/dL (7-17); Calcium 8.4 mg/dL (8.4-10.2); Carbon Dioxide 20 mmol/L (22-30); Chloride 92 mmol/L (98-107); Estimated CRCL calculation 45 ml/min; Estimated Glomerular Filt Rate > 60; Glucose 113 mg/dL (65-110); Potassium 4.7 mmol/L (3.4-5.0); Sodium 124 mmol/L (137-145)
[2022-05-15 07:53] LABS: Creatinine Urine 88.3 mg/dL
[2022-05-15 07:54] LABS: Appearance Urine Slightly Cloudy (Clear); Bilirubin Urine Negative (Negative); Blood Urine Negative (Negative); Color Urine Yellow (Yellow); Glucose Urine UA Negative (Negative); Ketones Urine Trace mg/dL (Negative); Leukocyte Esterase Ur 1+ LEU/UL (Negative); Nitrate Urine Negative (Negative); Protein Urine 1+ mg/dL (Negative)
[2022-05-15 08:04] LABS: Sodium Urine Random 79 meq/L
[2022-05-15] MEDS: LORATADINE 10 MG TABLET PO (08:23)
[2022-05-15] MEDS: ACETAMINOPHEN 500 MG TABLET PO (08:23)
[2022-05-15] MEDS: ARTIFICIAL TEARS OPHTH SOLN 15 ML BOTTLE 1 DROP EACH EYE ×4 (08:23→20:24)
[2022-05-15] MEDS: MECLIZINE HCL 25 MG TABLET PO ×3 (08:23→17:29)
[2022-05-15] MEDS: VITAMIN B COMPLEX CAPSULE 1 CAP PO (08:23)
[2022-05-15] MEDS: lisinopriL 5 MG TABLET PO (08:23)
[2022-05-15] MEDS: ASPIRIN 81 MG CHEWABLE TABLET PO (08:24)
[2022-05-15] MEDS: BENZONATATE 100 MG CAPSULE PO ×2 (08:24→20:24)
[2022-05-15] MEDS: amLODIPine BESYLATE 5 MG TABLET PO (08:24)
[2022-05-15 08:39] LABS: Bacteria Urine 1+ /hpf; Mucus Urine Rare /lpf; RBC Urine 0-2 /hpf (0-2); Squamous Epithelial Cell Urine Rare /hpf (Few); Transitional Epi Cells Urine Rare /hpf (None Seen); WBC Clumps Urine Present /HPF
[2022-05-15 08:56] LABS: Add Urine Microscopic? YES
--- NOTE | 2022-05-15 09:10 | PCOTNOTE ---
Attempted to see pt. for occupational therapy evaluation. Pt. unable to sit upright in bed for transfer due to dizziness and nausea secondary to vertigo. Following.
[2022-05-15] MEDS: ONDANSETRON INJ 4 MG/2 ML VIAL IV PUSH (12:38)
--- NOTE | 2022-05-15 19:25 | PM.IMPN ---
Progress Note: A&P Assessment and Plan (1) Adnexal mass: Code(s): N94.89 - Other specified conditions associated with female genital organs and menstrual cycle Status: Acute (2) Elevated LFTs: Code(s): R79.89 - Other specified abnormal findings of blood chemistry Status: Acute (3) Hyponatremia: Code(s): E87.1 - Hypo-osmolality and hyponatremia Status: Acute (4) Vertigo: Code(s): R42 - Dizziness and giddiness Status: Acute (5) Carotid stenosis, left: Code(s): I65.22 - Occlusion and stenosis of left carotid artery Status: Acute (6) Benign positional vertigo: Code(s): H81.10 - Benign paroxysmal vertigo, unspecified ear Status: Acute (7) Contusion: Code(s): T14.8XXA - Other injury of unspecified body region, initial encounter Status: Acute (8) Hypertension: Code(s): I10 - Essential (primary) hypertension Status: Acute (9) Hyperlipidemia: Code(s): E78.5 - Hyperlipidemia, unspecified Status: Acute (10) Fall from ground level: Code(s): W18.30XA - Fall on same level, unspecified, initial encounter Status: Acute (11) Scalp hematoma: Code(s): S00.03XA - Contusion of scalp, initial encounter Status: Acute (12) History of CVA (cerebrovascular accident): Code(s): Z86.73 - Personal history of transient ischemic attack (TIA), and cerebral infarction without residual deficits Status: Acute Plan 05/14/22 ?Patient has acute on chronic vertigo.? He presents due to fall.? CT of the brain shows small area of chronic cystic encephalomalacia in the deep right frontoparietal white matter.? She is on aspirin and Lipitor.? He is were continued.? Carotid Doppler does show 50-69% stenosis in left internal carotid artery.? We will proceed with checking B12, TSH Conti.? Will check MRI of the brain to exclude cerebellar infarct.? Start PT and OT.? CT of the pelvis to exclude occult pelvic or femur fracture.? Echo has been ordered.? Schedule meclizine.? ? Check hepatitis panel.? Check right upper quadrant ultrasound.? Will hold atorvastatin. repeat LFTs in the morning.? Sodium is low.? Consider dehydration although her renal function is normal.? Consider SIADH from her dizziness.? She may also had an acute subclinical CVA.? Will check urine studies.? Check UA with micro and culture. Further recommendation as course dictates.? Continue telemetry today. 05/15/22 poor po tolerance Phenergan ns 50cc overnight vestibular therapy meclizine OOB to chair for all meals orthostatics MRI w Small old infarcts in left frontal lobe and right frontoparietal region pelvic US 6.8 cm cystic mass in right adnexa suspicious for neoplasm.? will discuss imaging findings in am w pt after nausea and dizziness improved Subjective Date/time seen: 05/15/22 19:25 complains of nausea vomiting poor po intake dizziness Review of Systems Review of Systems: All systems reviewed & are unremarkable except as noted in HPI and below Exam Narrative: Gen - NAD AAOx3 HEENT - right occipital -parietal scalp ecchymoses. Chest - Few basilar inspiratory crackles otherwise clear. CV - RRR S1/S2. Abd - Soft, NT/ND, Positive BS Ext - No pedal edema. Neuro - Alert and oriented. Nonfocal exam. Psych - congruent mood and affect Skin - Warm and dry Objective Data Vital Signs Vital Signs: Vital Signs - 24 hr 05/14/22 22:00 05/14/22 20:00 05/15/22 00:00 Temperature 97.9 F Pulse Rate 78 81 74 Respiratory Rate 18 Blood Pressure 142/65 H Pulse Oximetry 90 Oxygen Delivery 05/15/22 04:00 05/15/22 05:59 05/15/22 09:29 Temperature 97.5 F L Pulse Rate 56 L 80 Respiratory Rate 20 Blood Pressure 152/67 H Pulse Oximetry 96 Oxygen Delivery Room Air 05/15/22 10:46 05/15/22 08:00 05/15/22 12:00 Temperature 98.0 F Pulse Rate 84 120 H 83 Respiratory Rate 16 Blood Pressure 102/54 L
--- NOTE | 2022-05-15 19:49 | PC.NURSE ---
Dr. Tamayo returned phone call from prior RN about sepsis? I took the call. Patient had sepsis adelaminnae. MD questioned HR. Went over vital signs and labs with MD. Patient's urine culture pending. MD stated to order 1gm Rocephin daily. MD will reassess tomorrow.
[2022-05-15] MEDS: SODIUM CHLORIDE 0.9% IV 1,000 ML 50 ML IV CONT (20:21)
[2022-05-15] MEDS: cefTRIAXone 1 GM in SODIUM CHLORIDE 0.9% IV 100 ML 200 ML IVPB (21:35)
[2022-05-15] MEDS: PROMETHAZINE HCL 25 MG TABLET PO (21:35)
[2022-05-16] VITALS (9 sets, daily range): BP systolic 122–146; BP diastolic 48–78; PULSE 64–119; RESP 16–22; TEMP 35.6–36.5; O2SAT 94–98
[2022-05-16 07:02] LABS: Basophils Absolute Auto 0.1 K/mm3 (0.0-0.1); Basophils Percent Auto 0.3 % (0.2-1.2); Eosinophils Absolute Auto 0.1 K/mm3 (0-0.3); Eosinophils Percent Auto 0.6 % (0-4.4); Hematocrit 37.5 % (37.0-47.0); Immature Granulocyte Percent A 0.6 % (0-0.5); Lymphocytes Absolute Auto 2.48 K/mm3 (0.9-3.2); Lymphocytes Percent Auto 14.5 % (18.3-44.2); Mean Corpuscular HGB Conc 34.7 g/dl (32-36); Mean Corpuscular Hemoglobin 30.4 pg (26-34); Mean Corpuscular Volume 87.8 fl (80-100); Mean Platelet Volume 8.7 fl (7.4-10.4); Monocytes Percent Auto 6.1 % (2.6-8.5); Neutrophils Absolute Auto 13.4 K/mm3 (1.3-6.7); Neutrophils Percent Auto 77.9 % (45.5-73.1); Platelet Count Result 226 k/mm3 (150-375); Red Blood Count 4.27 M/mm3 (4.2-5.4); Red Cell Distribution Width 13.3 % (11.5-14.5); White Blood Count 17.2 K/mm3 (4.5-10.0)
[2022-05-16 07:10] LABS: Anion Gap 9 mmol/L (8-16); Blood Urea Nitrogen 14 mg/dL (7-17); Calcium 8.4 mg/dL (8.4-10.2); Carbon Dioxide 20 mmol/L (22-30); Chloride 94 mmol/L (98-107); Estimated CRCL calculation 46 ml/min; Estimated Glomerular Filt Rate > 60; Glucose 106 mg/dL (65-110); Magnesium 1.9 mg/dL (1.6-2.3); Potassium 4.2 mmol/L (3.4-5.0); Sodium 123 mmol/L (137-145)
[2022-05-16] MEDS: amLODIPine BESYLATE 5 MG TABLET PO (08:15)
[2022-05-16] MEDS: ACETAMINOPHEN 500 MG TABLET PO (08:15)
[2022-05-16] MEDS: ASPIRIN 81 MG CHEWABLE TABLET PO (08:15)
[2022-05-16] MEDS: LORATADINE 10 MG TABLET PO (08:16)
[2022-05-16] MEDS: VITAMIN B COMPLEX CAPSULE 1 CAP PO (08:16)
[2022-05-16] MEDS: lisinopriL 5 MG TABLET PO (08:16)
[2022-05-16] MEDS: MECLIZINE HCL 25 MG TABLET PO ×3 (08:16→17:09)
[2022-05-16] MEDS: BENZONATATE 100 MG CAPSULE PO ×2 (08:17→20:59)
[2022-05-16] MEDS: ARTIFICIAL TEARS OPHTH SOLN 15 ML BOTTLE 1 DROP EACH EYE ×3 (08:17→17:09)
--- NOTE | 2022-05-16 08:20 | PCOTNOTE ---
Spoke with Hospitalist, Dr. Tamayo, regarding potential accidental cancellation of Occupational Therapy treatment orders post-evaluation yesterday 05/15/2022. Hospitalist denied need for Occupational Therapy services at this time, but stated that she will reconsider and review the chart at a later time.
[2022-05-16] MEDS: ACETAMINOPHEN 325 MG TABLET 650 MG PO (17:08)
--- NOTE | 2022-05-16 17:13 | WPDCN ---
Assessment and Plan Assessment and plan (1) Adnexal mass: Code(s): N94.89 - Other specified conditions associated with female genital organs and menstrual cycle Status: Acute Assessment and Plan: CT scan and pelvic ultrasound show 6.8 cm complex mass noted in the right adnexa suspicious for neoplasm this is an incidental finding. Patient asymptomatic from an adnexal mass standpoint given patient's age and imaging characteristics, high suspicion for malignancy CA 125 ordered if tumor markers elevated and given patient's risk factors, would recommend referral to gynecological assistant Oncology will follow peripherally until CA 125 labs returned HPI Data of Consult Date/Time: 05/16/22 17:13 Requesting Physician: Ladarius Sin MD Primary Care Provider: Darius Leonardo, Consult Narrative Reason for consult: Adnexal Mass Narrative: Pepper Wilde is a 81 year old female Who presented after of vertigo related fall. Upon evaluation, patient was incidentally found to have a right adnexal mass on CT scan. Imaging was suspicious for neoplastic origin. Patient had follow-up pelvic ultrasound that again confirmed suspicion for neoplasm. Right adnexa shows of 5.3 cm complex structure. Patient reports some pelvic cramping. Patient is status post hysterectomy. Patient denies any bloating, early satiety, change in bowel habits, difficulty voiding. Patient denies any unintentional weight loss. Patient denies any family history of gynecologic cancers Review of Systems Review of Systems: All systems reviewed & are unremarkable except as noted in HPI and below PMFSH Past Medical History Medical History (Updated 05/15/22 @ 19:39 by Puja Tamayo MD) Coronary artery disease CVA (cerebral vascular accident) Degenerative disc disease Hyperlipidemia Hypertension Vertigo Surgical History Surgical History (Updated 05/13/22 @ 22:43 by Kandace Pang PA-C) History of bilateral cataract extraction History of cardiac catheterization History of heart artery stent Family History Family History Mother Family history of malignant neoplasm Family history of lung cancer Sibling Patient's brother is in good health Father Family history of malignant neoplasm Other Diabetes mellitus Family history of diabetes mellitus in first degree relative Family history of malignant neoplasm of breast Family history of malignant neoplasm of breast in first degree relative Social History Social History (Updated 05/13/22 @ 22:45 by Kandace Pang PA-C) Social History: Surrogate medical decision maker: Liliya Xiao or Nahun Hoffman, daughters. Code status: full code. Smoking status: Never smoker Alcohol intake: never Has the Lack of Transportation Kept You From Medical Appointments or From Getting Medications?: No Within the Past 12 Months, Were You Worried Whether Your Food Would Run Out Before You Got Money to Buy More?: Never True What is Your Housing Situation Today?: I Have Housing Are You Worried That in the Next 2 Months, You May Not Have Your Own Housing to Live In?: No Do You Have Trouble Paying Your Heating Or Electricity Bill?: No Do You Have Trouble Paying For Medicines?: No Are You Currently Unemployed and Looking for Work?: No Highest Level of Education Completed: High School Diploma/GED Do You Have Trouble With Childcare or the Care of a Family Member?: No Additional living arrangements comments: The patient lives in her own home in [place] with 1 cat. Additional occupation/education comments: Retired. Spiritual care concerns: No Meds Home Medications and Allergies Home Medications Medication Instructions Recorded Confirmed Type acetaminophen 500 mg tablet 500 mg PO DAILY 06/12/20 05/13/22 History (Tylenol Extra Strength) amlodipine 5 mg tablet 5 mg PO DAILY 06/12/20 05/13/22 History a
--- NOTE | 2022-05-16 17:54 | PM.IMPN ---
Progress Note: A&P Assessment and Plan (1) Acute vertigo with vomiting and inability to stand: Code(s): R42 - Dizziness and giddiness; R11.10 - Vomiting, unspecified Status: Acute (2) Adnexal mass: Code(s): N94.89 - Other specified conditions associated with female genital organs and menstrual cycle Status: Acute (3) Contusion: Code(s): T14.8XXA - Other injury of unspecified body region, initial encounter Status: Acute (4) Elevated LFTs: Code(s): R79.89 - Other specified abnormal findings of blood chemistry Status: Acute (5) Hyponatremia: Code(s): E87.1 - Hypo-osmolality and hyponatremia Status: Acute (6) Carotid stenosis, left: Code(s): I65.22 - Occlusion and stenosis of left carotid artery Status: Acute (7) Hypertension: Code(s): I10 - Essential (primary) hypertension Status: Acute (8) Hyperlipidemia: Code(s): E78.5 - Hyperlipidemia, unspecified Status: Acute (9) Fall from ground level: Code(s): W18.30XA - Fall on same level, unspecified, initial encounter Status: Acute (10) Scalp hematoma: Code(s): S00.03XA - Contusion of scalp, initial encounter Status: Acute (11) History of CVA (cerebrovascular accident): Code(s): Z86.73 - Personal history of transient ischemic attack (TIA), and cerebral infarction without residual deficits Status: Acute Plan 05/14/22 ?Patient has acute on chronic vertigo.? He presents due to fall.? CT of the brain shows small area of chronic cystic encephalomalacia in the deep right frontoparietal white matter.? She is on aspirin and Lipitor.? He is were continued.? Carotid Doppler does show 50-69% stenosis in left internal carotid artery.? We will proceed with checking B12, TSH Conti.? Will check MRI of the brain to exclude cerebellar infarct.? Start PT and OT.? CT of the pelvis to exclude occult pelvic or femur fracture.? Echo has been ordered.? Schedule meclizine.? ? Check hepatitis panel.? Check right upper quadrant ultrasound.? Will hold atorvastatin. repeat LFTs in the morning.? Sodium is low.? Consider dehydration although her renal function is normal.? Consider SIADH from her dizziness.? She may also had an acute subclinical CVA.? Will check urine studies.? Check UA with micro and culture. Further recommendation as course dictates.? Continue telemetry today. 05/15/22 poor po tolerance Phenergan ns 50cc overnight vestibular therapy meclizine OOB to chair for all meals orthostatics MRI w Small old infarcts in left frontal lobe and right frontoparietal region pelvic US 6.8 cm cystic mass in right adnexa suspicious for neoplasm.? will discuss imaging findings in am w pt after nausea and dizziness improved 05/16/22 pa has an acute episode of severe Vertigo. 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 unfortunate, PT refusing to do vestibular exercises with her but we will try to get a wheelchair a bedside commode and a referral to [facility] for outpt vestibular therapy. (worked when she had BPPV years ago) Review of Systems Review of Systems: All systems reviewed & are unremarkable except as noted in HPI and below Exam Narrative: Gen - NAD AAOx3 HEENT - right occipital -parietal scalp ecchymoses. Chest - CTA b/l CV - RRR S1/S2. Abd - Soft, NT
[2022-05-16] MEDS: cefTRIAXone 1 GM in SODIUM CHLORIDE 0.9% IV 100 ML 200 ML IVPB (20:59)
[2022-05-16] MEDS: SODIUM CHLORIDE 0.9% IV 1,000 ML 50 ML IV CONT (21:00)
[2022-05-17] VITALS (8 sets, daily range): BP systolic 109–141; BP diastolic 57–88; PULSE 64–97; RESP 18; TEMP 35.8–36.9; O2SAT 97–98
--- NOTE | 2022-05-17 09:58 | PM.DS ---
DS: Admitting Diagnosis Discharge Date 05/17/22 Admitting Diagnosis (1) Fall from ground level: ?Code(s): W18.30XA - Fall on same level, unspecified, initial encounter ?Status:?Acute (2) Scalp hematoma: ?Code(s): S00.03XA - Contusion of scalp, initial encounter ?Status:?Acute (3) Hypertension: ?Code(s): I10 - Essential (primary) hypertension ?Status:?Acute (4) Hyperlipidemia: ?Code(s): E78.5 - Hyperlipidemia, unspecified ?Status:?Acute (5) Vertigo: ?Code(s): R42 - Dizziness and giddiness ?Status:?Acute (6) Bruit: ?Code(s): R09.89 - Other specified symptoms and signs involving the circulatory and respiratory systems ?Status:?Acute DS: Discharge Diagnosis Discharge Diagnosis (1) Acute vertigo with vomiting and inability to stand: Code(s): R42 - Dizziness and giddiness; R11.10 - Vomiting, unspecified Status: Acute (2) History of CVA (cerebrovascular accident): Code(s): Z86.73 - Personal history of transient ischemic attack (TIA), and cerebral infarction without residual deficits Status: Acute (3) Carotid stenosis, left: Code(s): I65.22 - Occlusion and stenosis of left carotid artery Status: Acute (4) Adnexal mass: Code(s): N94.89 - Other specified conditions associated with female genital organs and menstrual cycle Status: Acute (5) Elevated LFTs: Code(s): R79.89 - Other specified abnormal findings of blood chemistry Status: Acute (6) Hyponatremia: Code(s): E87.1 - Hypo-osmolality and hyponatremia Status: Acute (7) Bruit: Code(s): R09.89 - Other specified symptoms and signs involving the circulatory and respiratory systems Status: Acute (8) Scalp hematoma: Code(s): S00.03XA - Contusion of scalp, initial encounter Status: Acute (9) Fall from ground level: Code(s): W18.30XA - Fall on same level, unspecified, initial encounter Status: Acute (10) Hyperlipidemia: Code(s): E78.5 - Hyperlipidemia, unspecified Status: Acute (11) Contusion: Code(s): T14.8XXA - Other injury of unspecified body region, initial encounter Status: Acute (12) Hypertension: Code(s): I10 - Essential (primary) hypertension Status: Acute (13) Traumatic cephalohematoma: Code(s): S00.93XA - Contusion of unspecified part of head, initial encounter Status: Acute DS: Summary Hospital Course Reason for hospitalization: Chief Complaint: Fall. Narrative: This is a very pleasant 81-year-old female with history of vertigo, coronary artery disease with history of stent, hypertension, GERD, and borderline diabetes who presented to the ED via EMS from the parking lot of a local establishment for evaluation after a fall. She felt okay when she got up this morning and went to the [employer] store to go shopping.? When she was stepping up occurred to enter the store she lost her balance and fell straight back onto the pavement, striking the back of her head.? She did not lose consciousness and she luckily did not sustain any significant injuries aside from a large posterior scalp hematoma.? She does however mention some mild pain over her tailbone. Passersby tried to help her up however at that time she was feeling quite dizzy, more vertiginous, and EMS was summoned. Vertigo is not new to her and she has prescriptions for meclizine at home.? She has even done physical therapy which seemed to help though she has had increasing issues with vertigo more recently.? Brain CT done on arrival to the emergency department did not show any acute findings.? Her vital signs have been stable.? She was treated with meclizine and Zofran though she continues to have symptoms and she is being admitted in this setting for supportive care.? It does not sound as though she had a prodrome prior to this episode however she tells me that she assumes that she had vertigo which cau
[2022-05-17] MEDS: ASPIRIN 81 MG CHEWABLE TABLET PO (10:24)
[2022-05-17] MEDS: VITAMIN B COMPLEX CAPSULE 1 CAP PO (10:24)
[2022-05-17] MEDS: ACETAMINOPHEN 500 MG TABLET PO (10:24)
[2022-05-17] MEDS: MECLIZINE HCL 25 MG TABLET PO ×3 (10:25→17:09)
[2022-05-17] MEDS: BENZONATATE 100 MG CAPSULE PO ×2 (10:25→20:35)
[2022-05-17] MEDS: amLODIPine BESYLATE 5 MG TABLET PO (10:25)
[2022-05-17] MEDS: ARTIFICIAL TEARS OPHTH SOLN 15 ML BOTTLE 1 DROP EACH EYE ×4 (10:26→20:36)
[2022-05-17] MEDS: lisinopriL 5 MG TABLET PO (10:26)
[2022-05-17] MEDS: LORATADINE 10 MG TABLET PO (10:26)
[2022-05-17 10:34] LABS: Basophils Absolute Auto 0.1 K/mm3 (0.0-0.1); Basophils Percent Auto 0.7 % (0.2-1.2); Eosinophils Absolute Auto 0.3 K/mm3 (0-0.3); Eosinophils Percent Auto 2.5 % (0-4.4); Hematocrit 36.6 % (37.0-47.0); Hemoglobin 12.3 g/dL (12.0-15.0); Immature Granulocyte Absolute 0.08 K/mm3 (0.00-0.031); Immature Granulocyte Percent A 0.7 % (0-0.5); Lymphocytes Absolute Auto 2.68 K/mm3 (0.9-3.2); Lymphocytes Percent Auto 21.9 % (18.3-44.2); Mean Corpuscular HGB Conc 33.6 g/dl (32-36); Mean Corpuscular Volume 89.3 fl (80-100); Mean Platelet Volume 8.5 fl (7.4-10.4); Monocytes Absolute Auto 0.9 K/mm3 (0.1-0.6); Monocytes Percent Auto 7.5 % (2.6-8.5); Neutrophils Absolute Auto 8.2 K/mm3 (1.3-6.7); Neutrophils Percent Auto 66.7 % (45.5-73.1); Platelet Count Result 200 k/mm3 (150-375); Red Cell Distribution Width 13.4 % (11.5-14.5); White Blood Count 12.2 K/mm3 (4.5-10.0)
[2022-05-17 10:56] LABS: Anion Gap 9 mmol/L (8-16); Blood Urea Nitrogen 12 mg/dL (7-17); Calcium 8.2 mg/dL (8.4-10.2); Carbon Dioxide 20 mmol/L (22-30); Chloride 100 mmol/L (98-107); Estimated CRCL calculation 51 ml/min; Estimated Glomerular Filt Rate > 60; Glucose 94 mg/dL (65-110); Sodium 129 mmol/L (137-145)
[2022-05-17] MEDS: PROMETHAZINE HCL 25 MG TABLET PO (20:36)
[2022-05-19 02:00] LABS: CA-125 35 U/mL (<35)
== END 2022-05-17 21:00 | disposition home or self-care (01) | DRG 149 ==
LOC: ANHED 17:43 → ANH3MEDSUR 19:37
PROVIDERS: Internal Medicine; Physician Assistant; Student in an Organized Health Care Education/Training Program; Admitting Provider Family Medicine; Emergency Provider Emergency Medicine; PCP Family Medicine; Visit Provider Hospitalist
DX: H81.10 Benign paroxysmal vertigo, unspecified ear (principal); E87.1 Hypo-osmolality and hyponatremia; R11.10 Vomiting, unspecified; S00.03XA Contusion of scalp, initial encounter; M54.59 Other low back pain; W01.198A Fall on same level from slipping, tripping and stumbling with subsequent striking against other object, initial encounter; S00.83XA Contusion of other part of head, initial encounter; Z91.81 History of falling; N94.89 Other specified conditions associated with female genital organs and menstrual cycle; I65.22 Occlusion and stenosis of left carotid artery; G93.89 Other specified disorders of brain; R09.89 Other specified symptoms and signs involving the circulatory and respiratory systems; I25.10 Atherosclerotic heart disease of native coronary artery without angina pectoris; I10 Essential (primary) hypertension; E78.5 Hyperlipidemia, unspecified; K21.9 Gastro-esophageal reflux disease without esophagitis; R73.03 Prediabetes; R79.89 Other specified abnormal findings of blood chemistry; Z20.822 Contact with and (suspected) exposure to COVID-19; Z79.899 Other long term (current) drug therapy; Z86.73 Personal history of transient ischemic attack (TIA), and cerebral infarction without residual deficits; Z90.710 Acquired absence of both cervix and uterus; Z95.5 Presence of coronary angioplasty implant and graft; Z98.42 Cataract extraction status, left eye; Z98.41 Cataract extraction status, right eye
CPT/HCPCS: 36415; 70450; 70553; 72170; 72192; 76705; 76856; 80048; 80053; 80074; 81001; 82570; 82607; 82746; 83735; 84300; 84443; 85025; 85027; 86304; 87040; 87086; 87088; 93306; 93880; 96374; 97161; 97166; 97530; 99285; A9270; A9577; G0378; J0696; J2405; J7030; U0003; U0005